=== PATIENT | male | born 1950 | race Caucasian/White ===

== ENCOUNTER → 2016-10-21 | Outpatient (CLI) | payer OTHER ==
[~2016-10-21] MED LIST: PRILOSEC
--- NOTE | ~2016-10-21 | US85 ---
[facility] A Service of [facility] RADIOLOGY TEXT RESULTS PATIENT: KRYS ALMANZA JR LOCATION: CNIV : 52 UNIT #: [id number] AGE: [address]: LAURA NATH APRN SEX: M ORDER DR: [id number] [facility] [address] [place], [place] [address] [id number] O MR#: [id number] Acc #: [id number] NAME: KRYS ALMANZA : 1950 SEX: M STUDY DATE/TIME: 10/21/2016 9:57 UNIT: CNIV ROOM: STUDY DESCRIPTION: [facility] Attending Physician: Laura Nath Aprn Referring Physician: Laura Nath Aprn Ordering Physician: Laura Nath Aprn Primary Care Physician: Laura Nath Aprn MEDICAL IMAGING REPORT This report is preliminary unless electronic signature is present EXAM Left lower extremity venous Doppler HISTORY Injury to the left leg in November 2015 with swelling since then. This is mainly at night. TECHNIQUE Mcguire-scale, color Doppler and Doppler waveform analysis was performed through the left lower extremity. TECHNIQUE Venous ultrasound examination of the left lower extremity was performed using grayscale, spectral Doppler and color flow Doppler imaging. FINDINGS The examination is negative. There is no evidence of left lower extremity deep venous thrombus from the groin to the lower calf. Visualized greater saphenous vein is also patent. IMPRESSION Negative examination. No evidence of left lower extremity deep venous thrombosis. Dictated by... Mirna Fisher M.D. THIS IS AN ELECTRONICALLY VERIFIED REPORT Mirna Fisher M.D. at 10/22/2016 5:41 PM AFF/pcl [facility] A Service [facility] RADIOLOGY TEXT RESULTS PATIENT: KRYS ALMANZA JR LOCATION: CNIV : 51 UNIT #: [id number] AGE: [address]: LAURA NATH APRN SEX: M ORDER DR: TD: 10/21/2016 22:57 JOB #: [id number] MEDICAL IMAGING REPORT Page 1 of 1 COPY
== END | disposition home or self-care (01) ==
LOC: CNIV 09:32
DX: R60.0 Localized edema (principal); I87.2 Venous insufficiency (chronic) (peripheral)
CPT/HCPCS: 93971